=== PATIENT | male | born 1970 | race Hispanic/Latino ===

== ENCOUNTER 2017-07-08 09:57 | Emergency (ER) | payer SELFPAY ==
[~2017-07-08] VITALS: Ht 180.3 cm; Wt 68.0 kg
[~2017-07-08 09:57] MED LIST: FLEXERIL OR; ULTRAM50 MG OR
[2017-07-08 10:17] VITALS: BP 152/77
[2017-07-08] MEDS ORDERED: BACTRIM DS1 TAB PO (10:17)
[2017-07-08] MEDS ORDERED: PREDNISONE50 MG PO (10:34)
== END 2017-07-08 10:50 | disposition home or self-care (01) | DRG 607 ==
LOC: ED 09:57
DX: L25.9 Unspecified contact dermatitis, unspecified cause (principal); F17.210 Nicotine dependence, cigarettes, uncomplicated